=== PATIENT | male | born 1950 | race Caucasian/White ===

== ENCOUNTER → 2016-09-21 | Outpatient (CLI) | payer MEDICARE ==
[~2016-09-21] MED LIST: ASPI-515 PO; CHOL200024 PO; HYDR12.58 PO; MULT-154 PO; OXYC-302 PO
[2016-09-21 10:37] LABS: ASPARTATE AMINO TRANSFERASE 9 U/L (15-37); BLOOD UREA NITROGEN 14 mg/dL (7-18)
== END | disposition home or self-care (01) ==
LOC: STAR 09:38
PROVIDERS: ATTEND Colon & Rectal Surgery
DX: Z01.812 Encounter for preprocedural laboratory examination (principal)
CPT/HCPCS: 36415; 80053; 85025

== ENCOUNTER 2016-09-30 05:50 | Inpatient (IN) | payer MEDICARE ==
[~2016-09-30] VITALS: Ht 174 cm; Wt 81.0 kg
[2016-09-30] MEDS ORDERED: BUPIVACAINE/PF-EPI 0.25% 1:200K ONE (06:56)
[2016-09-30] MEDS ORDERED: LACTATED RINGERS 1,000 ML IV SCH (07:03)
[2016-09-30 07:04] VITALS: BP 104/59
[2016-09-30] MEDS ORDERED: HYDROmorphone 1 MG/ML, 1ML ONE ×2 (07:12→09:33)
[2016-09-30] MEDS ORDERED: FENTANYL PF 250 MCG/5ML ONE (07:12)
[2016-09-30] MEDS ORDERED: KETAMINE 10 MG/ML, 20ML ONE (07:12)
[2016-09-30] MEDS ORDERED: MIDAZOLAM 1 MG/ML, 2ML ONE (07:12)
[2016-09-30] MEDS ORDERED: GLYCOPYRROLATE 0.2MG/1ML ONE (07:33)
[2016-09-30] MEDS ORDERED: CEFOTETAN 2 GM ONE (07:33)
[2016-09-30] MEDS ORDERED: ONDANSETRON 2MG/ML, 2ML ONE (07:33)
[2016-09-30] MEDS ORDERED: NEOSTIGMINE 1 MG/ML, 10ML ONE (07:33)
[2016-09-30] MEDS ORDERED: DEXAMETHASONE 4 MG/ML, 1ML ONE (07:33)
[2016-09-30] MEDS ORDERED: ROCURONIUM 10 MG/ML ONE (07:33)
[2016-09-30] MEDS ORDERED: PROPOFOL 10 MG/ML, 20ML ONE (07:33)
[2016-09-30] MEDS ORDERED: KETOROLAC 30 MG/1 ML ONE (07:33)
[2016-09-30] MEDS ORDERED: ONDANSETRON 2MG/ML, 2ML IVPush PRN (08:30)
[2016-09-30] MEDS ORDERED: HYDROmorphone 1 MG/ML, 1ML IV PRN (08:30)
[2016-09-30] MEDS ORDERED: MIDAZOLAM 1 MG/ML, 2ML IV PRN (08:30)
[2016-09-30] MEDS ORDERED: LABETALOL 5MG/ML, 20ML IV PRN (08:30)
[2016-09-30] MEDS ORDERED: ACETAMINOPHEN 325 MG TABLET PO PRN ×2 (08:30→13:00)
[2016-09-30] MEDS ORDERED: PROMETHAZINE 25 MG/ML, 1ML IV PRN (08:30)
[2016-09-30] MEDS ORDERED: OXYcodone 5 MG/5 ML ORAL.SOL UDC PO PRN (08:30)
[2016-09-30] MEDS ORDERED: hydrALAzine 20 MG/ML, 1ML IV PRN (08:30)
[2016-09-30] MEDS ORDERED: ALBUTEROL/IPRATROPIUM 2.5MG/0.5MG, 3 ML NPPB PRN (08:30)
[2016-09-30] MEDS ORDERED: MEPERIDINE/PF 25MG/0.5ML IVPush PRN (08:30)
[2016-09-30] MEDS ORDERED: FENTANYL PF 100 MCG/2ML ONE (10:15)
[2016-09-30] MEDS ORDERED: HYDROmorphone 2 MG/ML, 1ML ONE (10:15)
[2016-09-30] MEDS: FENTANYL PF 100 MCG/2ML IV PRN ×2 (11:30→11:35)
[2016-09-30] MEDS ORDERED: ONDANSETRON 2MG/ML, 2ML IV PRN (13:00)
[2016-09-30] MEDS ORDERED: DIPHENHYDRAMINE 50 MG/ML, 1ML IV PRN (13:00)
[2016-09-30] MEDS ORDERED: ACETAMINOPHEN 650 MG SUPP PR PRN (13:00)
[2016-09-30] MEDS ORDERED: LORazepam 2 MG/ML, 1ML IV PRN (13:00)
[2016-09-30] MEDS ORDERED: morphine SULFATE 10 MG/ML, 1ML IV PRN (13:00)
[2016-09-30] MEDS ORDERED: DIPHENHYDRAMINE 25 MG CAPSULE PO PRN (13:00)
[2016-09-30] MEDS ORDERED: LORazepam 1MG TABLET PO PRN (13:00)
[2016-09-30] MEDS: KETOROLAC 30 MG/1 ML IV SCH ×2 (14:00→18:35)
[2016-09-30] MEDS: LACTATED RINGERS 1,000 ML IV SCH ×2 (14:01→22:11)
[2016-09-30 14:06] VITALS: BP 104/62
[2016-09-30] MEDS: CEFOTETAN PMX 1GM/50ML 50 ML IVPB SCH (19:51)
[2016-09-30 21:39] VITALS: BP 102/50
[2016-10-01 00:30] VITALS: BP 103/55
[2016-10-01] MEDS: KETOROLAC 30 MG/1 ML IV SCH ×4 (01:18→22:16)
[2016-10-01 05:21] VITALS: BP 100/57
[2016-10-01 05:26] LABS: BLOOD UREA NITROGEN 24 mg/dL (7-18)
[2016-10-01] MEDS: ASPIRIN 81 MG TABLET EC PO SCH (05:44)
[2016-10-01] MEDS: LACTATED RINGERS 1,000 ML IV SCH ×3 (05:44→22:17)
[2016-10-01 07:50] VITALS: BP 104/55
[2016-10-01] MEDS: ENOXAPARIN 40 MG/0.4 ML SQ SCH (08:27)
[2016-10-01] MEDS: CEFOTETAN PMX 1GM/50ML 50 ML IVPB SCH (08:27)
[2016-10-01] MEDS: HYDROCHLOROTHIAZIDE 12.5 MG CAPSULE PO SCH (08:27)
[2016-10-01 12:35] VITALS: BP 106/56
[2016-10-01 22:54] VITALS: BP 129/59
[2016-10-02] MEDS: KETOROLAC 30 MG/1 ML IV SCH ×4 (02:34→22:42)
[2016-10-02 03:03] VITALS: BP 103/48
[2016-10-02 05:19] LABS: BLOOD UREA NITROGEN 19 mg/dL (7-18)
[2016-10-02] MEDS: ASPIRIN 81 MG TABLET EC PO SCH (06:06)
[2016-10-02] MEDS: LACTATED RINGERS 1,000 ML IV SCH (06:06)
[2016-10-02] MEDS: ENOXAPARIN 40 MG/0.4 ML SQ SCH (07:34)
[2016-10-02] MEDS: HYDROCHLOROTHIAZIDE 12.5 MG CAPSULE PO SCH (07:34)
[2016-10-02 09:25] VITALS: BP 126/62
[2016-10-02] MEDS ORDERED: OXYcodone/APAP 5/325MG TABLET PO PRN (10:30)
[2016-10-02 12:45] VITALS: BP 125/56
[2016-10-02] MEDS: SODIUM CHLORIDE FLUSH 3ML SYRINGE IVF SCH (21:00)
[2016-10-02 22:25] VITALS: BP 133/64
[2016-10-03 02:47] VITALS: BP 128/68
[2016-10-03] MEDS: KETOROLAC 30 MG/1 ML IV SCH ×3 (04:54→22:31)
[2016-10-03 06:07] LABS: BLOOD UREA NITROGEN 13 mg/dL (7-18)
[2016-10-03] MEDS: ASPIRIN 81 MG TABLET EC PO SCH (06:18)
[2016-10-03 08:59] VITALS: BP 142/70
[2016-10-03] MEDS: SODIUM CHLORIDE FLUSH 3ML SYRINGE IVF SCH ×2 (09:00→22:31)
[2016-10-03] MEDS: HYDROCHLOROTHIAZIDE 12.5 MG CAPSULE PO SCH (09:30)
[2016-10-03] MEDS: ENOXAPARIN 40 MG/0.4 ML SQ SCH (09:30)
[2016-10-03 13:41] VITALS: BP 121/61
[2016-10-03 19:43] VITALS: BP 125/64
[2016-10-04 03:29] VITALS: BP 154/71
[2016-10-04] MEDS: KETOROLAC 30 MG/1 ML IV SCH ×2 (04:45→10:19)
[2016-10-04] MEDS: ASPIRIN 81 MG TABLET EC PO SCH (04:55)
[2016-10-04 06:11] LABS: BLOOD UREA NITROGEN 11 mg/dL (7-18)
[2016-10-04] MEDS: HYDROCHLOROTHIAZIDE 12.5 MG CAPSULE PO SCH (08:28)
[2016-10-04] MEDS: ENOXAPARIN 40 MG/0.4 ML SQ SCH (08:28)
[2016-10-04] MEDS: SODIUM CHLORIDE FLUSH 3ML SYRINGE IVF SCH (08:28)
[2016-10-04 08:29] VITALS: BP 123/61
[2016-10-04] MEDS ORDERED: OXYC-302 PO (09:55)
[2016-10-04 10:50] VITALS: BP 125/67
== END 2016-10-04 11:23 | disposition home or self-care (01) | DRG 330 ==
LOC: ORIP 05:50 → 4NOR 12:12
PROVIDERS: ADMIT Colon & Rectal Surgery; ATTEND Colon & Rectal Surgery
PROC: 0DN80ZZ Release Small Intestine, Open Approach (ICD-10-PCS; 2016-09-30)
PROC: 0DJD4ZZ Inspection of Lower Intestinal Tract, Percutaneous Endoscopic Approach (ICD-10-PCS; 2016-09-30)
PROC: 0DTL0ZZ Resection of Transverse Colon, Open Approach (ICD-10-PCS; 2016-09-30)
PROC: 0DBB0ZZ Excision of Ileum, Open Approach (ICD-10-PCS; 2016-09-30)
PROC: 0DTM0ZZ Resection of Descending Colon, Open Approach (ICD-10-PCS; 2016-09-30)
PROC: 0DBN0ZZ Excision of Sigmoid Colon, Open Approach (ICD-10-PCS; 2016-09-30)
PROC: 0DTK0ZZ Resection of Ascending Colon, Open Approach (ICD-10-PCS; principal; 2016-09-30 07:30)
DX: D12.3 Benign neoplasm of transverse colon (principal); R71.0 Precipitous drop in hematocrit; K66.0 Peritoneal adhesions (postprocedural) (postinfection); F17.210 Nicotine dependence, cigarettes, uncomplicated; I10 Essential (primary) hypertension; J44.9 Chronic obstructive pulmonary disease, unspecified; Z82.49 Family history of ischemic heart disease and other diseases of the circulatory system; Z82.3 Family history of stroke; Z86.010 Personal history of colon polyps; Z80.0 Family history of malignant neoplasm of digestive organs; Z85.038 Personal history of other malignant neoplasm of large intestine; Z53.31 Laparoscopic surgical procedure converted to open procedure
CPT/HCPCS: 36415; 74000; 80048; 82040; 83735; 85025; 86850; 86900; 88307; J1100; J1170; J1650; J1885; J2250; J2270; J2405; J2704; J2710; J3010; J3490; C1765; J7120; S0074

== ENCOUNTER → 2017-07-11 | Outpatient (CLI) | payer MEDICARE ==
[~2017-07-11] MED LIST changes: +OMNIPAQUE 350 MG/ML, 150 ML BOTTLE ONE
== END | disposition home or self-care (01) ==
LOC: CFH 12:57
PROVIDERS: ATTEND Urology
DX: N28.89 Other specified disorders of kidney and ureter (principal); R91.1 Solitary pulmonary nodule
CPT/HCPCS: 74178; Q9967